=== PATIENT | female | born 1955 | race Caucasian/White ===

== ENCOUNTER 2023-10-25 09:20 | Outpatient (CLI) | payer MEDICARE, SELFPAY | END 2023-10-25 09:21 | disposition home or self-care (01) | PROVIDERS: PCP Emergency Medicine; Visit Provider Emergency Medicine | DX: Z01.818 Encounter for other preprocedural examination (principal); E78.5 Hyperlipidemia, unspecified; I10 Essential (primary) hypertension | CPT/HCPCS: 80048; 80061 ==

== ENCOUNTER 2024-02-13 07:57 | Outpatient (CLI) | payer MEDICARE, SELFPAY | END 2024-02-13 07:58 | disposition home or self-care (01) | LOC: NFLDREF 02-14 06:57 | PROVIDERS: PCP Emergency Medicine; Referring Provider Emergency Medicine; Visit Provider Emergency Medicine | DX: E78.2 Mixed hyperlipidemia (principal); R73.03 Prediabetes; I10 Essential (primary) hypertension | CPT/HCPCS: 80053; 80061 ==

== ENCOUNTER 2024-02-29 14:37 | Outpatient (CLI) | payer MEDICARE, SELFPAY ==
--- NOTE | 2024-02-29 15:00 | XR_ITS ---
Patient: KIAH GARCIA Facility:?[facility] Patient ID:?[id number] Site Patient ID:?[id number]. Site :?[id number] Study:?DEXA-Bone Density -02/29/2024 3:34:11 PM Ordering Physician:RAFIA Final Report: DXA BONE MINERAL DENSITY STUDY Reason for exam: Low-bone density screening. History of breast cancer, currently doing radiation treatment. Current height (inches): 63.0 Weight (lbs.): 140.0 Menopause age: 52 Ethnicity: White 1. Have you had a previous hip or vertebral fracture? No. 2. Have you had any fractures during your adult life which did not result from significant trauma (e.g., auto accident)? Yes. 3. Did either of your parents have a hip fracture? No. 4. Do you smoke? No. 5. Have you ever taken Glucocorticoids? No. 6. Do you have rheumatoid arthritis? No. 7. Do you have secondary osteoporosis? No. 8. Do you drink 3 or more alcoholic drinks per day? No. 9. Are you being treated for osteoporosis? No. 10. Have you ever taken any of the following medications: Actonel, Evista, Fosamax, Miacalcin, Reclast, Boniva, Forteo, HRT (i.e., estrogen/hormone therapy), Protelos, Prolia, Vitamin D, Calcium, other ? please specify. ANSWER: Yes; vitamin D, calcium. 11. Do you have any of the following medical conditions: Anorexia or bulimia, asthma or emphysema, end stage renal disease, hyperparathyroidism, any seizure disorders, cancer, inflammatory bowel diseases, hysterectomy, other ? please specify. ANSWER: No. 12. What was your maximum height (inches)? 63. 13. Do you perform weightbearing exercise regularly? No. 14. Do you regularly consume dairy products? Yes. 15. Do you drink caffeinated beverages? Yes. 16. At what age did your period start? 12. 17. Are you premenopausal? No. 18. How many full-term pregnancies have you had? 2. 19. Have you ever missed your period for more than 6 months in a row (not including or menopause)? No. TECHNIQUE: Bone mineral density study was performed using the [facility]. FINDINGS: The results of the study expressed as bone mineral density (BMD) are as follows: Lumbar Spine L1 to L4: BMD: 0.915 g/cm2. T-score: -1.2. Z-score: 0.8. Neck Left: BMD: 0.641 g/cm2. T-score: -1.9. Z-score: -0.2. Right: BMD: 0.657 g/cm2. T-score: -1.7. Z-score: 0.0. Total Left: BMD: 0.894 g/cm2. T-score: -0.4. Z-score: 1.0. Right: BMD: 0.893 g/cm2. T-score: -0.4. Z-score: 1.0. IMPRESSION: Osteopenia. FRAX 10-year Fracture Risk Major Osteoporotic Fracture: 17% Hip Fracture: 2.7% Reported Risk Factors: [place] () Neck BMD = 0.641, BMI = 24.8 MICKY YATES M.D. Diagnostic Radiologist [email or web address] DSM/dharmesh D& Transcribed: 11:[address]/Dictated by: Micky Yates MD @ 03/01/2024 11:44:00 AM Signed by:?Micky Yates MD @03/01/2024 12:30:16 PM (Electronic Signature)
== END 2024-02-29 14:38 | disposition home or self-care (01) ==
PROVIDERS: PCP Emergency Medicine; Visit Provider Emergency Medicine
DX: Z13.820 Encounter for screening for osteoporosis (principal); M85.88 Other specified disorders of bone density and structure, other site; Z85.3 Personal history of malignant neoplasm of breast
CPT/HCPCS: 77080